=== PATIENT | male | born 1950 | race Caucasian/White ===

== ENCOUNTER → 2020-06-10 09:01 | Outpatient (CLI) | payer MEDICARE, OTHER ==
[2016-03-20 03:36] VITALS: BMI 30.1
--- NOTE | ~2020-06-10 | EC ---
PATIENT:DEJUAN CARDENAS DATE OF SERVICE: 06/10/20 SEX: M MEDICAL RECORD: [id number] DATE OF : 54 LOCATION:[facility] [place] AGE OF PATIENT: 70 ADMISSION DATE: 06/10/20 REFERRING PHYSICIAN: INTERPRETING PHYSICIAN: CHASIDY GUO MD ECHOCARDIOGRAM REPORT ECHO CHARGES 4 ECHO COMPLETE Date: 06/10/20 CLINICAL DIAGNOSIS: ANGINA/HEART MURMUR ECHOCARDIOGRAPHIC MEASUREMENTS (adult normal given) AC root (d.<3.7cm) 3.5 cm LV Septum d (<1.2 cm> 1.2 cm Valve Excursion 1.3 cm LV Septum (systole) 1.6 cm Left Atria (s.<4.0cm> 3.0 cm LVPW d(<1.2cm) 1.6 cm RV (d.<2.3cm) 4.5 cm LVPW (sytole) 2.1 cm LV diastole(<5.6CM) 4.5 cm MV E-F(>70mm/sec) cm LV systole 2.8 cm LVOT Diameter 1.5 cm MV exc.(>10mm) 1.8 cm Est.ejection fraction (50-75%) % DOPPLER: LVIT cm/sec A 68.0 cm/sec E 49.0 cm/sec LA cm/sec RVSP 19 mmHg LVOT 86 cm/sec AOP1/2T m/s Asc. Ao 180 cm/sec RVOT 60 cm/sec RA cm/sec PA 177 cm/sec AV Gradient Peak 12.99mmHg AV Mean 7.11 mmHg AV Area 1.2 cm MV Gradient Peak 2.52 mmHg MV Mean 0.87 mmHg MV Area cm COMMENTS: Administrative Secretary: 2 ANABEL WALTERS [employer] Operations Intelligence Officer: 3 Dr. Tovar TAPE# PACS Pericardial Effusion N DATE OF SERVICE: Adequate 2D, color flow imaging, spectral Doppler, and M-mode. Borderline LVH. LV internal dimension is normal. Wall motion is normal. EF is greater than or equal 55%. Aortic valve sclerosis without stenosis by Doppler interrogation. Left atrium is normal at 3.0 cm. Mitral valve shows no prolapse. Trace MR. Right-sided chambers are grossly normal. Trace TR. NTS:[id number] Voice Confirmation ID: [id number] DOCUMENT ID: [id number] ECHOCARDIOGRAM REPORT [id number] CARDENAS,CHASIDY SALMON MD CC: [id number] DICTATION DATE: 06/13/20 1108 ATHLETIC TURF WORKER: 06/13/202008 DEP CLI 06/10/20 [id number] [place] [address]
[~2020-06-10 09:01] MED LIST: HYDROCODON-ACE1 EAC7 PO
== END | disposition home or self-care (01) ==
LOC: D.HCCECHO 09:01
PROVIDERS: ATTEND Internal Medicine Cardiovascular Disease
DX: I20.9 Angina pectoris, unspecified (principal)